=== PATIENT | male | born 1970 | race Caucasian/White ===

== ENCOUNTER 2019-02-12 12:07 | Emergency (ER) | payer OTHER ==
[2019-02-12 12:13] VITALS: BP 132/98; PULSE 74; TEMP 97.6; BMI 24.1
[2019-02-12] MEDS ORDERED: NAPROXEN 500 MG TABLET (FP) PO ONE (12:42)
[2019-02-12] MEDS ORDERED: NAPROXEN 500 MG TABLET (FP) ONE (12:44)
--- NOTE | 2019-02-12 12:47 | PDOC ---
History of Present Illness - General Chief Complaint: Pain Stated Complaint: LEFT RIB PAIN Time Seen by Provider: 02/12/19 12:28 History Source: Patient Exam Limitations: No Limitations - History of Present Illness Initial Comments: 02/12/19 9:44 was skiing 2 days ago, when he sustained a fall onto his left side/tumble. Uncertain as to the exact mechanism but thinks may have landed on a ski pole/D or even elbow. Now complaints of pain to his left upper rib cage, nipple area, chest wall. Denies shortness of breath, no fevers, but with certain movements turning and lifting arm has recurrent pain to his left mid chest wall. No Occurred: reports: other (2 days ago ) Severity: reports: mild Pain Location: reports: chest Method of Injury: Yes: fall (skiing ) Modifying Factors: improves with: cold therapy Loss of Consciousness: no loss of consciousness Associated Symptoms (Fall): denies symptoms Past History - Travel Traveled outside of the country in the last 30 days: No Close contact w/someone who was outside of country & ill: No - Past Medical History Allergies/Adverse Reactions: Allergies Allergy/AdvReac Type Severity Reaction Status Date / Time No Known Allergies Allergy Verified 02/12/19 12:13 Home Medications: Ambulatory Orders Naproxen [Naprosyn -] 500 mg PO BID #30 tablet 02/12/19 COPD: No - Suicide/Smoking/Psychosocial Hx Smoking History: Never smoked Trauma Specific PMHX - Complaint Specific PMHX Back Injury: No Neck Injury: No Review of Systems - Review of Systems Able to Perform ROS?: Yes Is the patient limited Pashto proficient: Yes Constitutional: Yes: Symptoms Reported, See HPI, Malaise. No: Fever HEENTM: Yes: See HPI. No: Symptoms Reported Respiratory: Yes: Symptoms reported, See HPI. No: Cough, Shortness of Breath ( but pain with deep inspiration - worse ) Integumentary: Yes: Symptoms Reported, See HPI. No: Bruising Neurological: Yes: Symptoms reported, See HPI All Other Systems: Reviewed and Negative *Physical Exam - Vital Signs Last Vital Signs Temp Pulse Resp BP Pulse Ox 97.6 F 74 18 132/98 97 02/12/19 12:10 02/12/19 12:10 02/12/19 12:10 02/12/19 12:10 02/12/19 12:10 - Physical Exam General Appearance: Yes: Nourished, Appropriately Dressed, Apparent Distress, Mild Distress, Moderate Distress HEENT: positive: IDALIA, Normal ENT Inspection, TMs Normal, Pharynx Normal Neck: positive: Supple. negative: Tender, Lymphadenopathy (R), Lymphadenopathy (L) Respiratory/Chest: positive: Lungs Clear (but painful to take deep inspiration with tenderness reproduced in approximately rib 456 anterior chest wall midclavicular line without crepitus or step-offs.), Normal Breath Sounds, Other (has no reproduced pain crepitus or step-offs along lower and upper rib borders however at midclavicular line approximately ribs 45 and 6 has some tenderness extending around to mid axillary line. No crepitus or step-offs. No obvious bruising or swelling noted.). negative: Chest Tender Cardiovascular: negative: Regular Rhythm Gastrointestinal/Abdominal: positive: Soft (nontender, no upper right or left quadrant tenderness bruising or deformities noted.). negative: Tender, Distended, Guarding, Rebound, Hepatomegaly, Spleenomegaly Musculoskeletal: positive: Normal Inspection. 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 Rib contusion, will treat with NSAIDs and rest *DC/Admit/Observation/Transfer Diagnosis at time of Disposition: Contusion of rib on left side Qualifiers: Encounter type: initial encounter Qualified Code(s): S20.212A - Contusion of left front wall of thorax, initial encounter - Discharge Dispostion Disposition: HOME Condition at time of disposition: Stable Decision to Admit order: No - Prescriptions Prescriptions: Naproxen [Naprosyn -] 500 mg PO BID #30 tablet - Referrals Referrals: Jean Jara [Primary Care Provider] - - Patient Instructions Printed Discharge Instructions: DI for Rib Contusion Additional Instructions: Rest, ice to area on and off for 15 minutes 4-6 times a day Avoid heavy lifting or exercise until pain and swelling is resolved or until further directed Keep area highly elevated to reduce swelling Followup with orthopedist in one to 2 days if not improving, if significantly improved may wait one week for followup with orthopedist May use Naprosyn 1500 milligrams tablet every 12 hours for the next 3 days then as needed for pain relief - Post Discharge Activity Forms/Work/School Notes: Back to Work
== END 2019-02-12 13:10 | disposition home or self-care (01) ==
LOC: JERFT 12:07
DX: S20.212A Contusion of left front wall of thorax, initial encounter (principal); W00.0XXA Fall on same level due to ice and snow, initial encounter; Y93.23 Activity, snow (alpine) (downhill) skiing, snowboarding, sledding, tobogganing and snow tubing; Y92.838 Other recreation area as the place of occurrence of the external cause; Y99.8 Other external cause status
CPT/HCPCS: 71101-TC-LT-FY; 99281-25